=== PATIENT | female | born 1980 | race Caucasian/White ===

== ENCOUNTER 2017-05-26 17:17 | Emergency (ER) | payer OTHER ==
[2017-05-26 17:23] VITALS: TEMP 97.9
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
[2017-05-26 19:28] VITALS: BP 116/86; PULSE 76; RESP 16; O2SAT 97
== END 2017-05-26 19:27 | disposition home or self-care (01) ==
DX: S42.215A Unspecified nondisplaced fracture of surgical neck of left humerus, initial encounter for closed fracture (principal); S93.402A Sprain of unspecified ligament of left ankle, initial encounter; S00.532A Contusion of oral cavity, initial encounter; V18.4XXA Pedal cycle driver injured in noncollision transport accident in traffic accident, initial encounter; Y92.410 Unspecified street and highway as the place of occurrence of the external cause; Y99.8 Other external cause status; Y93.55 Activity, bike riding